=== PATIENT | male | born 2000 | race Caucasian/White ===

== ENCOUNTER 2021-01-17 20:15 | Emergency (ER) | payer OTHER, BC ==
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
--- NOTE | 2021-01-18 08:25 | CR ---
Left knee: 3 views of the left knee were obtained. Comparison: No prior knee studies available. Very minimal medial joint space narrowing is seen when compared to the lateral joint. Joint spaces are otherwise preserved. No joint effusion is seen. No acute fracture or subluxation is seen. Impression: 1. Slight medial joint space narrowing when compared to the lateral joint. 2. Nothing acute is otherwise seen on left knee exam. Diagnostic code #2
--- NOTE | 2021-01-18 08:38 | CT ---
Head CT Technique: Multiple axial sections through the brain were obtained. Intravenous contrast was not utilized. Reconstructed coronal and sagittal images were obtained. Comparison: No prior intracranial imaging is available. Limitations: Significant motion artifact is seen limiting details of the study. Ventricles along with basal cisterns and sulci over theconvexities appear within normal limits. No gross abnormal parenchymal densities are seen. No discrete intracranial hemorrhage is noted. No midline shift or mass-effect is seen. Bone window settings were reviewed. Visualized mastoid sinuses and paranasal sinuses show nothing acutely present. No acute calvarial abnormality is definitely seen. Impression: 1. Motion artifact limiting the study. 2. No gross abnormality is identified on limited noncontrast CT study of the brain. Diagnostic code #2 I agree with preliminary report from [facility], finalized on 01/17/21, 10:28 PM CDT, code 1
== END 2021-01-17 23:17 | disposition home or self-care (01) ==
LOC: JD.ED 20:15
DX: S09.90XA Unspecified injury of head, initial encounter (principal); S00.83XA Contusion of other part of head, initial encounter; M25.562 Pain in left knee; Z72.0 Tobacco use; V59.9XXA Occupant (driver) (passenger) of pick-up truck or van injured in unspecified traffic accident, initial encounter
CPT/HCPCS: 70450; 70450-26; 73562-26-LT; 73562-LT; 99283; 99284-25

== ENCOUNTER 2022-10-20 01:49 | Emergency (ER) | payer BC ==
[2022-10-20] MEDS ORDERED: Ondansetron 4 MG/2 ML SDV IVPUSH ONE (02:25)
[2022-10-20] MEDS ORDERED: Sodium Chloride 0.9% 1,000 ML IV SCH (02:30)
[2022-10-20 02:32] LABS: BASOPHILS ABSOLUTE AUTO 0.02 K/mm3 (0.01-0.08); BASOPHILS PERCENT AUTO 0.1 % (0.1-1.2); EOSINOPHILS ABSOLUTE AUTO 0.13 K/mm3 (0.04-0.54); EOSINOPHILS PERCENT AUTO 0.9 (0.8-7.0); HEMATOCRIT 45.7 % (40.1-51.0); HEMOGLOBIN 15.9 gm/dl (13.7-17.5); IMMATURE GRAN ABSOLUTE AUTO 0.03 K/mm3 (0.00-0.10); IMMATURE GRAN PERCENT AUTO 0.2 % (<=1.0); LYMPHOCYTES ABSOLUTE AUTO 1.24 K/mm3 (1.32-3.57); MEAN CORPUSCULAR HGB CONC 34.8 g/dl (32.2-35.5); MEAN CORPUSCULAR VOLUME 89.1 fl (79.0-92.2); MEAN PLATELET VOLUME 12.2 fl (9.4-12.3); MONOCYTES ABSOLUTE AUTO 0.74 K/mm3 (0.30-0.82); MONOCYTES PERCENT AUTO 5.4 % (5.3-12.2); NEUTROPHILS ABSOLUTE AUTO 11.57 K/mm3 (1.78-5.38); NEUTROPHILS PERCENT AUTO 84.4 % (34.0-67.9); PLATELET COUNT,PLT 230 K/mm3 (163-337); RED BLOOD CELL COUNT 5.13 M/mm3 (4.63-6.08); WHITE BLOOD CELL COUNT,WBC 13.73 K/mm3 (4.23-9.07)
[2022-10-20 03:03] LABS: A/G RATIO 1.2 (1-2); ALBUMIN 4.2 g/dl (3.4-5.0); ANION GAP 12.5 (5-15); BILIRUBIN TOTAL 0.3 mg/dL (0.2-1.0); BUN/CREATININE RATIO 13.8 (14-18); CALCIUM 8.4 mg/dL (8.5-10.1); CREATININE 0.8 mg/dL (0.7-1.3); EST CRCL DRUG DOSING (CG) 157.63 mL/min; ETHANOL BLOOD MEDICAL 0.18 gm% (0.00); MAGNESIUM 1.7 mg/dL (1.8-2.4); POTASSIUM,K 3.5 mEq/L (3.5-5.1); PROTEIN TOTAL,TP 7.7 g/dl (6.4-8.2)
[2022-10-20 04:32] LABS: BARBITURATE SCREEN,URINE NEGATIVE (CUTOFF=200); BENZODIAZEPINES SCREEN,URINE NEGATIVE (CUTOFF=150); BUPRENORPHINE SCREEN,URINE NEGATIVE (CUTOFF=10); METHADONE SCREEN, URINE NEGATIVE (CUT0FF=200); METHAMPHETAMINES SCREEN, URINE NEGATIVE (CUTOFF=500); OXYCODONE SCREEN,URINE NEGATIVE (CUT0FF=100); PROPOXYPHENE SCREEN,URINE NEGATIVE (CUTOFF=300); THC SCREEN,URINE 20 NG/ML NEGATIVE (CUTOFF=50)
[2022-10-20 04:35] LABS: AMPHETAMINES SCREEN, URINE PRESUMPTIVE POSITIVE (CUTOFF=500)
== END 2022-10-20 06:31 | disposition home or self-care (01) ==
LOC: JD.ED 01:49
DX: F10.129 Alcohol abuse with intoxication, unspecified (principal); K21.9 Gastro-esophageal reflux disease without esophagitis; Z79.899 Other long term (current) drug therapy; Z86.16 Personal history of COVID-19; Y90.0 Blood alcohol level of less than 20 mg/100 ml
CPT/HCPCS: 36415; 73610; 80053; 80306; 80307; 83735; 85025; 96361; 96374; 99284; J2405; J7030